=== PATIENT | female | born 1990 | race American Indian/Alaskan Native ===

== ENCOUNTER 2018-06-22 16:16 | Emergency (ER) | payer MEDICAID, MEDICARE ==
--- NOTE | 2018-06-22 17:02 | Emergency Department Report ---
Blank Doc - Documentation Documentation: RLQ pain with nausea. no dysuria or hematuria.
[2018-06-22 17:48] LABS: Bacteria,Urine 1+ /HPF (Negative); Bilirubin,Urine NEG (Negative); Blood,Urine NEG (Negative); Color,Urine Yellow (Yellow); Mucus,Urine 1+ /HPF; Protein,Urine <15 mg/dL mg/dL (Negative)
[2018-06-22 17:48] LABS: Basophils % (Auto) 0.5 % (0.0-1.8); Eosinophils % (Auto) 0.2 % (0.0-4.3); Hematocrit 38.5 % (30.3-42.9); Hemoglobin 12.3 gm/dl (10.1-14.3); Lymphocytes # (Auto) 1.6 K/mm3 (1.2-5.4); Lymphocytes % (Auto) 20.7 % (13.4-35.0); Mean Corpuscular HGB Conc 32 % (30-34); Mean Corpuscular Volume 78 fl (79-97); Monocytes % (Auto) 13.2 % (0.0-7.3); Platelet Count 292 K/mm3 (140-440); Red Blood Count 4.93 M/mm3 (3.65-5.03); Red Cell Distribution Width 14.3 % (13.2-15.2)
[2018-06-22 17:49] LABS: WBC,Urine > 182.0 /HPF (0.0-6.0)
[2018-06-22 17:50] LABS: HCG Qualitative,Urine Negative (Negative)
[2018-06-22 18:37] LABS: Albumin 4.3 g/dL (3.9-5); BUN/Creatinine Ratio 12; Blood Urea Nitrogen 6 mg/dL (7-17); Calcium 9.1 mg/dL (8.4-10.2); Hemolysis Index 0
[2018-06-22 18:39] LABS: Alanine Aminotransferase < 5 units/L (7-56); Bilirubin,Direct < 0.2 mg/dL (0-0.2)
[2018-06-22 20:21] VITALS: BP 116/70
[2018-06-22] MEDS ORDERED: TORADOL IV ONE (20:30)
[2018-06-22] MEDS ORDERED: TORADOL ONE (20:33)
--- NOTE | 2018-06-22 20:42 | Cat Scan Report ---
PROCEDURE: CT ABDOMEN PELVIS W CON TECHNIQUE: Computerized axial tomography of the abdomen and pelvis was performed after the IV inject ion of iodinated nonionic contrast. CT DOSE LENGTH PRODUCT: mGycm HISTORY: Abdominal Pain COMPARISONS: None . FINDINGS: Arterial phase images demonstrate a mildly hypervascular lesion in left lobe liver measuring about 6. 6 x 5.2 cm. This lesion is hypodense in the delayed phase images. There is no central scar. The splee n, pancreas and adrenal glands are within normal limits. Bilateral kidneys demonstrate uniform enhanc ement without hydronephrosis. Urinary bladder is partially filled with normal outlines. Aorta is of n ormal caliber. Minimal degree of free fluid is noted in the pelvic cavity which is within physiologic limits. There is no free air. Uterus is retroverted. A 4.7 x 3.2 cm cystic lesion is noted in the ri ght adnexal region. Gallbladder is unremarkable. Small bowel loops are within normal limits. There is mild degree residual stool. Appendix is normal. Vertebral height is normal. IMPRESSION: A 6.6 x 5.2 cm lesion is noted in the left lobe liver. MRI pre and post contrast is recommended to ru le out a neoplasm. A 4.7 x 3.2 cm cystic lesion in the right adnexal region most likely represents an ovarian cyst. Ultr asound evaluation may be recommended. Uterus is retroverted This document is electronically signed by Pola Caro MD., June 22 2018 08:40:49 PM ET
--- NOTE | 2018-06-22 22:44 | Ultrasound Report ---
PROCEDURE: US ABDOMEN COMPLETE TECHNIQUE: Standard ultrasound of the abdomen HISTORY: liver mass on CT COMPARISONS: CT A/P 06/22/2018 . FINDINGS: Examination of the gallbladder demonstrates no evidence for gallstones, distention, wall thickening, or pericholecystic fluid. No sonographic Ruiz's sign is elicited. Common bile duct is normal in ev meter measuring 3.3 mm. The liver is normal and homogeneous in echogenicity without intrahepatic biliary dilatation. Hyperech oic focus in the left lobe liver measuring 2.4 x 0.9 x 1.4 cm. Corresponds to the hypodense focus ryan ng the falciform ligament seen on CT. Findings suggest focal fatty deposition. The large rounded density seen in the left lobe of the liver on CT is not visualized by ultrasound. C ontinued evaluation with MRI is recommended. The pancreas is normal in thickness without focal abnormality or pancreatic duct dilatation. The sple en is normal in length measuring 9.8 cm and homogeneous in echogenicity without focal abnormalities. Examination of the kidneys demonstrates both to be normal in size and have normal cortical echogenici ty and thickness. The right and left kidneys measure 12.9 cm and 10.6 cm in craniocaudal length, resp ectively. No evidence for calculi, hydronephrosis, or solid mass is seen in either kidney. The inferior vena cava and aorta are normal. Maximum diameter of the aorta is 1.7 cm in its proximal portion. IMPRESSION: 1. Large rounded density seen on CT in the left lobe is not identified by ultrasound. Continued evalu ation with MRI is recommended 2. Hyperechoic smaller focus along the falciform ligament anteriorly is likely focal fatty deposition , as also noted on CT This document is electronically signed by Farzana Patel MD., June 22 2018 10:42:24 PM ET
--- NOTE | 2018-06-22 23:05 | Emergency Department Report ---
ED Abdominal Pain HPI - General Chief Complaint: Abdominal Pain Stated Complaint: POSS KIDNEY STONES Time Seen by Provider: 06/22/18 17:01 Source: patient Mode of arrival: Ambulatory Limitations: No Limitations - History of Present Illness Initial Comments: This is a 28-year-old female who presents to the complaint of right-sided flank pain for about a week. Patient states that she's also had about a week of nausea. She admits to dysuria as well. She denies vaginal discharge, vaginal bleed, fever, vomiting, abdominal pain and pelvic pain. MD Complaint: flank pain Migration to: no migration Severity scale (0 -10): 9 Quality: aching, sharp Consistency: intermittent Improves With: nothing Worsens With: nothing Associated Symptoms: nausea, dysuria - Related Data Previous Rx's Medication Instructions Recorded Last Taken Type Fluconazole [Diflucan] 150 mg PO ONCE #1 tablet 06/22/18 Unknown Rx Ibuprofen [Motrin] 800 mg PO Q8HR #30 tablet 06/22/18 Unknown Rx Phenazopyridine [Pyridium] 200 mg PO BID #10 tab 06/22/18 Unknown Rx Sulfamethoxazole/Trimethoprim 1 each PO BID #14 tablet 06/22/18 Unknown Rx [Bactrim DS TAB] Allergies Allergy/AdvReac Type Severity Reaction Status Date / Time No Known Allergies Allergy Unverified 06/22/18 16:17 ED Review of Systems ROS: Stated complaint: POSS KIDNEY STONES Other details as noted in HPI Comment: All other systems reviewed and negative ED Past Medical Hx - Past Medical History Previous Medical History?: No - Surgical History Past Surgical History?: No - Social History Smoking Status: Never Smoker Substance Use Type: None - Medications Home Medications: Home Medications Medication Instructions Recorded Confirmed Last Taken Type Fluconazole [Diflucan] 150 mg PO ONCE #1 tablet 06/22/18 Unknown Rx Ibuprofen [Motrin] 800 mg PO Q8HR #30 tablet 06/22/18 Unknown Rx Phenazopyridine [Pyridium] 200 mg PO BID #10 tab 06/22/18 Unknown Rx Sulfamethoxazole/Trimethoprim 1 each PO BID #14 tablet 06/22/18 Unknown Rx [Bactrim DS TAB] ED Physical Exam - General Limitations: No Limitations General appearance: alert, in no apparent distress - Head Head exam: Present: atraumatic, normocephalic - Eye Eye exam: Present: normal appearance - ENT ENT exam: Present: mucous membranes moist - Neck Neck exam: Present: normal inspection - Respiratory Respiratory exam: Present: normal lung sounds bilaterally. Absent: respiratory distress - Cardiovascular Cardiovascular Exam: Present: regular rate, normal rhythm. Absent: systolic murmur, diastolic murmur, rubs, gallop - GI/Abdominal GI/Abdominal exam: Present: soft, normal bowel sounds. Absent: distended, tenderness, guarding, rebound, organomegaly - Extremities Exam Extremities exam: Present: normal inspection, full ROM - Back Exam Back exam: Present: normal inspection - Neurological Exam Neurological exam: Present: alert, oriented X3 - Psychiatric Psychiatric exam: Present: normal affect, normal mood - Skin Skin exam: Present: warm, dry, intact, normal color. Absent: rash ED Course Vital Signs 06/22/18 06/22/18 06/22/18 16:27 20:14 20:34 Temperature 98.1 F Pulse Rate 97 H 69 Respiratory 16 16 15 Rate Blood Pressure 116/70 Blood Pressure 119/72 [Right] O2 Sat by Pulse 98 100 Oximetry 06/22/18 23:45 Temperature Pulse Rate 86 Respiratory 15 Rate Blood Pressure Blood Pressure [Right] O2 Sat by Pulse 100 Oximetry ED Medical Decision Making - Lab Data Result diagrams: 06/22/18 17:26 06/22/18 17:26 - Radiology Data Radiology results: report reviewed, image reviewed CT scan shows abnormal finding on the liver sole radiologist recommended ultrasound. Abdominal ultrasound shows no acute findings. - Medical Decision Making 28-year-old female presents with flank pain Patient received pain medication in ED. She reports feeling much better. CT scan of the abdomen shows abnormal finding the 6 cm mass on the liver. Patient had no abdominal pain or tenderness. Ultrasound was ordered ultrasound did not show this finding seen on the CT scan. I discussed this findings with the patient I discussed the patient to follow up with the primary care physician needed MRI for further evaluation. Patient was treated with antibiotics treated for UTI Vital signs are normal she is in no acute distress Critical care attestation.: If time is entered above; I have spent that time in minutes in the direct care of this critically ill patient, excluding procedure time. ED Disposition Clinical Impression: Flank pain, UTI (urinary tract infection) Disposition: TO HOME OR SELFCARE Is pt being admited?: No Does the pt Need Aspirin: No Condition: Stable Instructions: Urinary Tract Infection in Women (ED), Acute Pyelonephritis (ED), Abdominal Pain (ED) Additional Instructions: Make sure to follow up with the primary care physician as discussed. Take all your medications as you've been prescribed. If you have any worsening symptoms or develop new symptoms please return to ED immediately. Prescriptions: Sulfamethoxazole/Trimethoprim [Bactrim DS TAB] 1 each PO BID #14 tablet Fluconazole [Diflucan] 150 mg PO ONCE #1 tablet Ibuprofen [Motrin] 800 mg PO Q8HR #30 tablet Phenazopyridine [Pyridium] 200 mg PO BID #10 tab Referrals: KARLENE BLANCO MD [Primary Care Provider] - 3-5 Days [facility] [Provider Group] - 3-5 Days [facility] [Provider Group] - 3-5 Days [facility] [Outside] - 3-5 Days [facility] [Outside] - 3-5 Days Forms: Work/School Release Form(ED) Time of Disposition: 23:38
== END 2018-06-22 23:45 | disposition home or self-care (01) ==
LOC: ED 16:16
DX: N39.0 Urinary tract infection, site not specified (principal)
CPT/HCPCS: 36415; 74177; 76700; 80048; 80076; 81001; 81025; 83690; 85025; 96374; 99284; J1885; Q9967

== ENCOUNTER 2018-07-19 08:10 | Outpatient (CLI) | payer MEDICAID ==
--- NOTE | 2018-07-19 19:45 | Magnetic Resonance Report ---
PROCEDURE: MR ABDOMEN WO/W CON HISTORY: WITH CONTRAST THEN WITHOUT CONTRAST OF LIVER, LIVER MASS FINDINGS: MRI of the abdomen was performed using axial T1-weighted gradient echo images in and out of phase, axial T2, coronal T2*gradient echo, coronal T1, axial fat saturated T1-weighted gradient echo , and axial and coronal postcontrast T1-weighted gradient echo images obtained following the intraven ous administration of 16 cc MultiHance. Comparison is made to the CT examination of June 22, 2018, a t which time a lesion was noted in the liver. On MRI there is a lesion of the medial segment left lobe of liver which is hypervascular in the arter ial phase, arterial phase image 61, measuring 5.6 x 6.5 cm. This lesion is isointense of the liver on precontrast T1 and T2-weighted images and becomes isointense to the liver on the delayed postcontras t phase. This is consistent with a lesion of hepatocellular origin and, given its isointensity to purvi er on T1 weighted images,T2 weighted images and postcontrast delayed images, likely represents focal nodular hyperplasia. On delayed phase imaging, this lesion likely has a small central scar, axial del ayed phase image 57, again consistent with focal nodular hyperplasia. The spleen, adrenal glands, pancreas, gallbladder, kidneys are unremarkable. The abdominal aorta is n ormal in size. The celiac axis, superior mesenteric artery, inferior mesenteric artery and bilateral renal arteries appear patent. IMPRESSION: Lesion of medial segment left lobe of liver, hypervascular in the arterial phase but othe rwise isointense to remainder of liver. This has MR imaging characteristics most consistent with foca l nodular hyperplasia This document is electronically signed by Moreno Trejo MD., July 19 2018 07:43:19 PM ET
== END 2018-07-19 08:11 | disposition home or self-care (01) ==
LOC: MRI 08:10
PROVIDERS: ATTEND Student in an Organized Health Care Education/Training Program
DX: R16.0 Hepatomegaly, not elsewhere classified (principal)
CPT/HCPCS: 74183; A9577

== ENCOUNTER 2019-01-28 21:33 | Emergency (ER) | payer MEDICAID ==
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
[2019-01-29 03:21] VITALS: BP 130/80
== END 2019-01-29 03:20 | disposition home or self-care (01) ==
LOC: ED 21:33
DX: S70.312A Abrasion, left thigh, initial encounter (principal); W50.3XXA Accidental bite by another person, initial encounter; Y93.89 Activity, other specified; Y92.89 Other specified places as the place of occurrence of the external cause; Y99.8 Other external cause status
CPT/HCPCS: 99281

== ENCOUNTER 2019-03-29 12:48 | Emergency (ER) | payer MEDICAID ==
[2019-03-29] MEDS ORDERED: FAMOTIDINE 20 MG/2 ML INJ IV ONE ×2 (13:22→13:25)
[2019-03-29] MEDS ORDERED: diphenhydrAMINE 50 MG/ML VIAL IV ONE (13:22)
[2019-03-29] MEDS ORDERED: methylPREDNISolone Sod Succinate 125 MG/2 ML INJ IV ONE (13:22)
[2019-03-29] MEDS ORDERED: methylPREDNISolone Sod Succinate 125 MG/2 ML INJ ONE (13:25)
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
[2019-03-29] MEDS ORDERED: ALBUTEROL 2.5 MG/3 ML NEBU IH ONE (13:27)
--- NOTE | 2019-03-29 13:58 | XRay Report ---
CHEST 1 VIEW INDICATION: sob COMPARISON: None FINDINGS: Support devices: None Heart: Normal Lungs/Pleura: No acute pulmonary or pleural findings. IMPRESSION: 1. No acute disease. Signer Name: Ted Lowe MD Signed: 03/29/2019 1:53 PM Workstation Name: [id number]
[2019-03-29 14:22] LABS: Basophils # (Auto) 0.1 K/mm3 (0.0-0.1); Basophils % (Auto) 1.2 % (0.0-1.8); Eosinophils # (Auto) 0.1 K/mm3 (0.0-0.4); Eosinophils % (Auto) 1.6 % (0.0-4.3); Hemoglobin 11.3 gm/dl (10.1-14.3); Lymphocytes # (Auto) 1.5 K/mm3 (1.2-5.4); Lymphocytes % (Auto) 36.2 % (13.4-35.0); Mean Corpuscular HGB Conc 32 % (30-34); Mean Corpuscular Volume 79 fl (79-97); Monocytes # (Auto) 0.5 K/mm3 (0.0-0.8); Monocytes % (Auto) 11.1 % (0.0-7.3); Platelet Count 266 K/mm3 (140-440); Red Blood Count 4.41 M/mm3 (3.65-5.03); Red Cell Distribution Width 16.1 % (13.2-15.2)
[2019-03-29 14:50] LABS: Alanine Aminotransferase 10 units/L (7-56); Albumin 3.9 g/dL (3.9-5); BUN/Creatinine Ratio 22; Blood Urea Nitrogen 13 mg/dL (7-17); Calcium 8.6 mg/dL (8.4-10.2); Hemolysis Index 10
[2019-03-29 17:15] VITALS: BP 142/87
== END 2019-03-29 17:04 | disposition home or self-care (01) ==
LOC: ED 12:48
DX: T78.40XA Allergy, unspecified, initial encounter (principal); F17.200 Nicotine dependence, unspecified, uncomplicated; Z98.890 Other specified postprocedural states; Z79.899 Other long term (current) drug therapy
CPT/HCPCS: 36415; 71045; 80053; 84703; 85025; 96374; 96375; 99284; J1200; J2930

== ENCOUNTER 2020-11-05 12:18 | Emergency (ER) | payer MEDICAID ==
[2020-11-05 15:53] VITALS: BP 128/71
== END 2020-11-05 19:55 | disposition left against medical advice (07) ==
LOC: ED 12:18
DX: T14.8XXA Other injury of unspecified body region, initial encounter (principal); Z53.21 Procedure and treatment not carried out due to patient leaving prior to being seen by health care provider; W53.11XA Bitten by rat, initial encounter; Y93.89 Activity, other specified; Y92.89 Other specified places as the place of occurrence of the external cause; Y99.8 Other external cause status

== ENCOUNTER 2020-12-26 19:21 | Emergency (ER) | payer MEDICAID ==
[2020-12-26 21:05] VITALS: BP 123/84
--- NOTE | 2020-12-26 22:00 | Emergency Department Report ---
ED General Adult HPI - General Chief complaint: Upper Respiratory Infection Stated complaint: SINUS INFECTION Time Seen by Provider: 12/26/20 21:18 Source: patient Mode of arrival: Ambulatory Limitations: No Limitations - History of Present Illness Initial comments: 30 y/o female pt presents to ED w/ complaints of itchy watery eyes, nasal congestion, and sneezing for 4 days. No known sick contacts. No current steroid or antibiotic use. No recent travel. Patient has been using [id number] Mucinex and cough/cold remedies with limited relief. Denies fever, chills, cough, chest pain, shortness of breath, wheezing, neck stiffness, headache, vomiting. Denies all other complaints at this time. - Related Data Previous Rx's Medication Instructions Recorded Last Taken Type Famotidine [Pepcid] 20 mg PO BID #60 tablet 03/29/19 Unknown Rx predniSONE [Deltasone] 20 mg PO DAILY #5 tablet 03/29/19 Unknown Rx Cetirizine HCl 10 mg PO DAILY #7 tablet 12/26/20 Unknown Rx Fluticasone [Flonase] 1 spray NS QDAY #1 bottle 12/26/20 Unknown Rx Allergies Allergy/AdvReac Type Severity Reaction Status Date / Time No Known Allergies Allergy Unverified 06/22/18 16:17 ED Review of Systems ROS: Stated complaint: SINUS INFECTION Other details as noted in HPI Other: GENERAL: Negative for fever, chills, weight change, anorexia, fatigue. EYES: Positive for itching/watering. ENT: Positive for congestion and sneezing. CARDIOVASCULAR: Negative for chest pain, palpitations, lower extremity swelling. PULMONARY: Negative for cough, dyspnea, wheezing, orthopnea, cyanosis. GASTROINTESTINAL: Negative for abdominal pain, nausea, vomiting, diarrhea, constipation. MUSCULOSKELETAL: Negative for joint pain, joint swelling, myalgias, back pain, neck pain. NEUROLOGICAL: Negative for headache, seizure, syncope, paresthesias, weakness. INTEGUMENTARY: Negative for erythema, rash, diaphoresis, laceration, ecchymosis. HEMATOLOGICAL: Negative for hemoptysis, hematemesis, hematochezia, hematuria. PSYCHIATRIC: Negative for hallucinations, suicidal ideation, homicidal ideation, anxiety, depression. ED Past Medical Hx - Past Medical History Previous Medical History?: No - Surgical History Past Surgical History?: Yes Additional Surgical History: Ovary removed - Social History Smoking Status: Current Every Day Smoker Substance Use Type: Alcohol - Medications Home Medications: Home Medications Medication Instructions Recorded Confirmed Last Taken Type Famotidine [Pepcid] 20 mg PO BID #60 tablet 03/29/19 Unknown Rx predniSONE [Deltasone] 20 mg PO DAILY #5 tablet 03/29/19 Unknown Rx Cetirizine HCl 10 mg PO DAILY #7 tablet 12/26/20 Unknown Rx Fluticasone [Flonase] 1 spray NS QDAY #1 bottle 12/26/20 Unknown Rx ED Physical Exam - General Limitations: No Limitations - Other Other exam information: General: Awake and alert. No acute distress. Head: Atraumatic, normocephalic. Eyes: EOMI. Pupils are equal and round. Normal sclera and conjunctiva. ENT: Clear rhinorrhea. Oral mucosa is moist. Normal pharyngeal exam. Neck: Supple. No lymphadenopathy. Pulmonary: No respiratory distress. Clear to auscultation bilaterally. Cardiac: Regular rate and rhythm. Pulses are palpable and equal bilaterally. No lower extremity cyanosis or edema. Skin: Warm and dry. No rashes. Abdomen: Soft, non-tender, non-protuberant. No guarding, rigidity, or rebound. Bowel sounds are normal. No organomegaly or masses noted. Back: Normal alignment. No CVA tenderness. Extremities: Symmetrical. Full range of motion intact. Neurological: Alert and oriented, appropriately interactive, no focal deficits. Psych: Cooperative. Appropriate mood and affect. Speech is evenly metered. Thoughts are logically construed. ED Course Vital Signs 12/26/20 12/26/20 12/26/20 20:37 20:39 21:04 Temperature 98 F Pulse Rate 90 83 Respiratory 16 18 Rate Blood Pressure 133/84 Blood Pressure 123/84 [Right] O2 Sat by Pulse 100 Oximetry ED Medical Decision Making - Medical Decision Making Patient presents to the emergency department with signs/symptoms consistent with acute nasopharyngitis. She is afebrile, hemodynamically stable, tolerating oral intake without difficulty, no distress. No clinical evidence to suggest airway obstruction or systemic bacterial illness warranting further diagnostic work-up on an emergent basis at this time. Patient will be discharged home with appropriate symptomatic treatment and referred to primary care provider for close outpatient follow-up. Patient expressed understanding and is agreeable to plan of care. Disease transmission precautions discussed. Strict return precautions provided. History, exam, diagnostic testing, and current condition do not suggest worrisome pathology to warrant further testing, continued ED treatment, admission, or surgical evaluation at this point. Given the low probability of a significant medical illness, it would be more likely to result in harm than benefit to perform further testing at this stage. Discussed findings, presumptive diagnosis, need for follow-up and specific signs/symptoms that should prompt immediate return to the emergency department. Instructions were explained in detail to the patient in addition to giving written discharge information. Patient expressed understanding and was given the opportunity to ask questions, all of which were satisfactorily answered prior to discharge home. Critical care attestation.: If time is entered above; I have spent that time in minutes in the direct care of this critically ill patient, excluding procedure time. ED Disposition Clinical Impression: Acute nasopharyngitis Disposition: HOME / SELF CARE / HOMELESS Is pt being admited?: No Does the pt Need Aspirin: No Condition: Stable Instructions: Nonallergic Rhinitis Additional Instructions: Take Tylenol every 4 hours and Motrin every 8 hours as needed for pain. Take Cetirizine as directed. Use Flonase as directed. Exposure to warm humidified air may help relieve congestion. Rest. Drink plenty of fluids. Wash hands frequently to prevent disease transmission. Do not share food or drinks with others. Follow-up with primary care provider this week. Call tomorrow to schedule an appointment. Return to the emergency department immediately for new or worsening symptoms. Prescriptions: Cetirizine HCl 10 mg PO DAILY #7 tablet Fluticasone [Flonase] 1 spray NS QDAY #1 bottle Referrals: BRIAN FARMER MD [Staff Physician] - 3-5 Days Time of Disposition: 22:01
== END 2020-12-26 22:44 | disposition home or self-care (01) ==
LOC: ED 19:21
DX: J00 Acute nasopharyngitis [common cold] (principal); F17.200 Nicotine dependence, unspecified, uncomplicated; F10.20 Alcohol dependence, uncomplicated
CPT/HCPCS: 99282